=== PATIENT | female | born 1990 | race Caucasian/White ===

== ENCOUNTER 2024-10-09 18:34 | Inpatient (IN) | payer BC ==
[2024-10-09] MEDS ORDERED: Sodium Chloride 0.9% 10 ML Syringe FLUSH PRN (19:11)
[2024-10-09] MEDS ORDERED: Oxytocin/0.9 % Sodium Chloride 30 UNIT/500 ML BAG IV SCH (19:15)
[2024-10-09 19:45] LABS: BASOPHILS ABSOLUTE AUTO 0.0 K/mm3 (0.0-0.2); BASOPHILS PERCENT AUTO 0.2 % (0.0-1.0); EOSINOPHILS ABSOLUTE AUTO 0.0 K/mm3 (0.0-0.4); EOSINOPHILS PERCENT AUTO 0.3 % (0.0-6.0); IMMATURE GRAN ABSOLUTE AUTO 0.08 K/mm3 (0.00-0.05); IMMATURE GRAN PERCENT AUTO 0.6 % (0.0-0.4); LYMPHOCYTES ABSOLUTE AUTO 2.1 K/mm3 (1.0-4.8); LYMPHOCYTES PERCENT AUTO 16.4 % (24.0-44.0); MEAN PLATELET VOLUME 14.0 fl (9.4-12.3); MONOCYTES ABSOLUTE AUTO 0.9 K/mm3 (0.0-0.8); MONOCYTES PERCENT AUTO 7.0 % (0.0-8.0); NEUTROPHILS ABSOLUTE AUTO 9.5 K/mm3 (1.8-7.7); NEUTROPHILS PERCENT AUTO 75.5 % (41.0-71.0); NRBC ABSOLUTE 0.00 (0.00-0.02); NRBC PERCENT 0.0 % (0.0-0.2); PLATELET COUNT,PLT 147 K/mm3 (150-400); RED BLOOD CELL COUNT 4.11 M/mm3 (4.10-5.30); WHITE BLOOD CELL COUNT,WBC 12.57 K/mm3 (3.9-11.3)
[2024-10-09] MEDS ORDERED: Sodium Chloride 0.9% 10 ML Syringe FLUSH SCH (21:00)
[2024-10-10] MEDS: Nalbuphine 10 MG/1 ML Vial IVPUSH PRN (01:02)
[2024-10-10] MEDS: Lactated Ringers 1,000 ML IV SCH (01:30)
[2024-10-10] MEDS: Ondansetron 4 MG/2 ML SDV IVPUSH PRN (01:37)
[2024-10-10] MEDS ORDERED: ePHEDrine 50 MG/ML SDV IVPUSH PRN (02:03)
[2024-10-10] MEDS ORDERED: diphenhydrAMINE 50 MG/ML SDV IVPUSH PRN (02:03)
[2024-10-10] MEDS: Bupivacaine/fentaNYL/NS 100 ML Bag EPIDUR PRN (02:12)
[2024-10-10] MEDS: fentaNYL 100 MCG/2 ML SDV EPIDUR PRN (02:19)
[2024-10-10] MEDS: Oxytocin/0.9 % Sodium Chloride 30 UNIT/500 ML BAG IV SCH (08:39)
[2024-10-10] MEDS: Witch Hazel Medicated Pads 40/Jar TOP PRN (09:41)
[2024-10-10] MEDS: Benzocaine/Menthol 20%-0.5% Spray 78 GM Cannister TOP PRN (09:41)
[2024-10-10] MEDS: Clindamycin Phosphate in D5W 900 MG in Premix Bag 1 BAG IV ONE (10:12)
== END 2024-10-11 13:15 | disposition home or self-care (01) | DRG 560 ==
LOC: JD.OBCHECK 18:34 → JD.OB 18:37 → JD.OBCHECK 19:10 → JD.OB 19:11 → OBSVTOIN 10-10 07:41 → JD.OB 10-10 07:42
PROVIDERS: ADMIT Obstetrics & Gynecology; ATTEND Obstetrics & Gynecology
PROC: 3E0R3BZ Introduction of Anesthetic Agent into Spinal Canal, Percutaneous Approach (ICD-10-PCS; principal; 2024-10-10)
PROC: 10D07Z6 Extraction of Products of Conception, Vacuum, Via Natural or Artificial Opening (ICD-10-PCS; principal; 2024-10-10)
PROC: 10907ZC Drainage of Amniotic Fluid, Therapeutic from Products of Conception, Via Natural or Artificial Opening (ICD-10-PCS; principal; 2024-10-10)
PROC: 0KQM0ZZ Repair Perineum Muscle, Open Approach (ICD-10-PCS; 2024-10-10)
DX: O48.0 Post-term pregnancy (principal); Z3A.41 41 weeks gestation of pregnancy; Z37.0 Single live birth; O73.0 Retained placenta without hemorrhage; O98.32 Other infections with a predominantly sexual mode of transmission complicating childbirth; Z88.8 Allergy status to other drugs, medicaments and biological substances; Z90.49 Acquired absence of other specified parts of digestive tract; Z98.890 Other specified postprocedural states; Z79.899 Other long term (current) drug therapy; O70.1 Second degree perineal laceration during delivery
CPT/HCPCS: 36415; 51701; 59025; 59409; 85025; 86592; 86850; 86900; 86901; A9270-GY; J0665; J0736; J1580; J2300; J2405; J3010; J3490; J7120; J7999